=== PATIENT | male | born 1950 | race Caucasian/White ===

== ENCOUNTER → 2016-07-23 | Outpatient (CLI) | payer MEDICARE, OTHER | END | disposition home or self-care (01) | LOC: PCVCCLINIC 11:21 | PROVIDERS: ATTEND Internal Medicine Cardiovascular Disease | DX: I25.10 Atherosclerotic heart disease of native coronary artery without angina pectoris (principal); J44.9 Chronic obstructive pulmonary disease, unspecified; E78.00 Pure hypercholesterolemia, unspecified; I65.29 Occlusion and stenosis of unspecified carotid artery; I10 Essential (primary) hypertension; Z72.0 Tobacco use | CPT/HCPCS: 80061; 93005; G0463 ==

== ENCOUNTER → 2017-01-29 | Outpatient (CLI) | payer MEDICARE, OTHER ==
--- NOTE | 2017-01-29 10:44 | PCVCIMAG ---
EXAM: BILATERAL CAROTID DUPLEX INDICATION: Carotid Occlusive Disease. FINDINGS: Doppler Measurements (centimeters per second): RIGHT: Peak CCA-81, Peak ECA-172, Diastolic ICA-35, Peak ICA-114, ICA/CCA Ratio-1.4. LEFT: Peak CCA-130, Peak ECA-133, Diastolic ICA-33, Peak ICA-119, ICA/CCA Ratio-0.9. RIGHT CAROTID: Good color flow throughout a prior stent in the upper common carotid and extending into the proximal internal carotid artery. The proximal internal carotid artery shows no significant stenosis. The common carotid artery shows no significant stenosis. The external carotid artery shows 60% stenosis. LEFT CAROTID: The carotid bulb has moderate plaque. The proximal internal carotid artery shows <40% stenosis. The common carotid artery shows no significant stenosis. The external carotid artery shows 40% stenosis. Antegrade flow in both vertebral arteries. IMPRESSION: Prior right carotid stent showing good patency. <40% stenosis of the left internal carotid artery with moderate plaque. LOC:[id number]
--- NOTE | 2017-01-29 12:52 | PCVCIMAG ---
APPROVED REPORT Exam: Stress Echocardiogram Indication: CAD s/p PCI, Hypertension, Hyperlipidemia.+ tobacco, COPD Patient Location: Echo lab Stress Nurse: Joanne Dunne RN Room #: 2 Status: routine Ht: 5 ft 7 in HR: 70 bpm BP: 162/62 mmHg Rhythm: NSR Medical History Medical History: CAD s/p stent, COPD, HTN, Hyperlipidemia Cardiac Risk Factors: HTN, Hyperlipidemia, Smoking Previous Cardiac Procedures: PCI Pretest Chest Pain Characteristics: No chest pain Exercise History: Physically active Procedure The patient underwent an Exercise Stress Test using the Tushar Protocol. Blood pressure, heart rate, and EKG were monitored. An Echocardiogram was performed by lidar technician in four stages in quad fashion. At peak stress, four selected images were obtained and placed side by side with resting images for comparison. Stress Test Details Stress Test: Exercise stress testing was performed using a Tushar protocol. HR Resting HR: 70 bpmMax Heart Rate (APMHR): 152 bpm Max HR Achieved: 134 bpmTarget HR (85% APMHR): 129 bpm % of APMHR: 88 Recovery HR: 81 bpm HR response to stress: Normal HR response to stress BP Resting BP: 162/62 mmHg Max BP: 210/84 mmHg Recovery BP: 180/70 mmHg ECG Resting ECG: Sinus Rhythm Stress ECG: Sinus Rhythm ST Change: Upsloping ST depression Maximum ST Deviation: 1.1 mm Arrhythmia: rare PAC,PVC Recovery ECG: Sinus Rhythm Recovery ST Change: Non-ischemic Recovery ST Deviation: 1.1 mm Recovery Arrhythmia: None Clinical Reason for Termination: Maximal effort Stress Symptoms: none Exercise duration: 8 min 01 sec Highest Stage Achieved: Stage 3: 3.4 mph at 14% grade. Exercise capacity: 10.1 METs Overall Exercise Capacity for Age: Average Angina Score: None No complications. Stress ECG Conclusion The patient exercised according to the Tushar protocol for 8:01 mins; achieving a work level of 10.1 METS. The resting heart rate of 70 bpm jennifer to a maximal heart rate of 134 bpm. This value represents 88% of the maximal, age-predicted heart rate. The resting blood pressure of 162/62 mmHg, jennifer to a maximum of 210/84 mmHg. The exercise test was stopped due to fatigue. White Treadmill Score is 2.5 which is Moderate risk. Pre-Stress Echo The resting Echocardiogram showed normal left ventricular contractility with an estimated Ejection Fraction of about 55-60%. Normal wall motion in all segments on baseline images. Post-Stress Echo The stress Echocardiogram showed normal left ventricular contractility with an estimated Ejection Fraction of about 60-65%. Normal augmentation of wall motion in all segments on post stress images. Clinical No clinical or ECG evidence for ischemia. Conclusion Clinical Response: Non-ischemic Exercise Capacity: Average Stress ECG Response: Non-ischemic Stress Echo Images: Non-ischemic No clinical, EKG or echocardiographic evidence for ischemia. No echocardiographic evidence for exercise induced ischemia. Normal stress echocardiogram with maximal exercise stress. <Conclusion> No clinical, EKG or echocardiographic evidence for ischemia. No echocardiographic evidence for exercise induced ischemia. Normal stress echocardiogram with maximal exercise stress.
== END | disposition home or self-care (01) ==
LOC: PCVCIMAG 09:01
PROVIDERS: ATTEND Internal Medicine Cardiovascular Disease
DX: I65.23 Occlusion and stenosis of bilateral carotid arteries (principal); I25.10 Atherosclerotic heart disease of native coronary artery without angina pectoris; I10 Essential (primary) hypertension; J44.9 Chronic obstructive pulmonary disease, unspecified; I49.3 Ventricular premature depolarization; E78.00 Pure hypercholesterolemia, unspecified; Z72.0 Tobacco use; Z95.5 Presence of coronary angioplasty implant and graft; Z95.828 Presence of other vascular implants and grafts
CPT/HCPCS: 93325; 93351; 93880

== ENCOUNTER → 2017-09-03 | Outpatient (CLI) | payer MEDICARE, OTHER | END | disposition home or self-care (01) | LOC: PCVCCLINIC 10:50 | DX: I25.10 Atherosclerotic heart disease of native coronary artery without angina pectoris (principal); I10 Essential (primary) hypertension; E78.00 Pure hypercholesterolemia, unspecified; I77.9 Disorder of arteries and arterioles, unspecified; F17.210 Nicotine dependence, cigarettes, uncomplicated; R94.31 Abnormal electrocardiogram [ECG] [EKG]; Z79.899 Other long term (current) drug therapy; Z79.82 Long term (current) use of aspirin; Z88.0 Allergy status to penicillin | CPT/HCPCS: 80061; 93005; G0463 ==

== ENCOUNTER → 2018-05-01 | Outpatient (CLI) | payer MEDICARE, OTHER | END | disposition home or self-care (01) | LOC: PCVCCLINIC 13:58 | PROVIDERS: ATTEND Internal Medicine Cardiovascular Disease | DX: I25.10 Atherosclerotic heart disease of native coronary artery without angina pectoris (principal); I10 Essential (primary) hypertension; E78.00 Pure hypercholesterolemia, unspecified; I65.23 Occlusion and stenosis of bilateral carotid arteries; J44.9 Chronic obstructive pulmonary disease, unspecified; F17.210 Nicotine dependence, cigarettes, uncomplicated; Z79.82 Long term (current) use of aspirin; Z88.8 Allergy status to other drugs, medicaments and biological substances | CPT/HCPCS: 36415; 80061; 93005; G0463 ==

== ENCOUNTER → 2018-10-29 | Outpatient (CLI) | payer MEDICARE, OTHER ==
[~2018-10-29] MED LIST: REGADENOSON 0.4 MG/5 ML DISP.SYRIN. IV ONE
--- NOTE | 2018-10-29 09:57 | PCVCIMAG ---
APPROVED REPORT Laterality: Bilateral Indications Stenosis Doppler Spectral Velocity Analysis PSV / EDVPSV / EDV ECA (R) 121 / 13 cm/sECA (L) 70 / 6 cm/s dICA (R) 107 / 39 cm/sdICA (L) 63 / 27 cm/s Roman (R) 167 / 53 cm/smICA (L) 138 / 40 cm/s pICA (R) 76 / 27 cm/spICA (L) 129 / 45 cm/s Bulb (R) 72 / 16 cm/sBulb (L) 116 / 32 cm/s dCCA (R) 77 / 21 cm/sdCCA (L) 121 / 23 cm/s mCCA (R) 77 / 22 cm/smCCA (L) 144 / 37 cm/s Vert (R) 79 / 21 cm/sVert (L) 81 / 22 cm/s ICA/CCA 2.17 ICA/CCA 1.14 Findings The right carotid bulb has mild plaque. The right proximal internal carotid artery shows no significant stenosis. Mid right ICA stenosis distal to stent 60% Widely patent right common and ICA stent The right common carotid artery shows no significant stenosis. The left carotid bulb has moderate plaque. The left proximal internal carotid artery shows 40-50% stenosis. The left common carotid artery shows 40-50% stenosis. The left external carotid artery shows no significant stenosis. Conclusion 1. Right proximal internal carotid artery shows no significant stenosis. Mid right ICA stenosis distal to stent 60% Widely patent right common and ICA stent 2. Left proximal internal and common carotid artery 40-50% stenoses. 3. Antegrade vertebral flow
--- NOTE | 2018-10-29 11:34 | PCVCIMAG ---
APPROVED REPORT Imaging Protocol: Rest Tc-99m/Stress Tc-99m 1 day Study performed: 10/29/2018 09:46:16 Indication: CAD Patient Location: Out-Patient Stress Nurse: Laurie Keith RN, Joanne Dunne RN [place] Tech:Valerie Eliecer [facility] Ht: 5 ft 7 in Wt: 130 lbs BSA: 1.68 m2 HR: 68 bpm BP: 195/77 mmHg BMI: 20.35 Rhythm: Normal Sinus Rhythm with a septal infarct Medical History Medical History: Hyperlipidemia, HTN, CVD, COPD, Current Smoker Medications: Albuterol, ASA, Losartan, Pravastatin Allergies: Antihistamines Cardiac Risk Factors: Age Pretest Chest Pain Characteristics: No chest pain Exercise History: Physically active Resting Data Rest SPECT myocardial perfusion imaging was performed in supine position 45 minutes following the intravenous injection of 10.6 mCi of Tc-99m Sestamibi. Time of rest injection: 914 Date: 10/29/2018 Administration Route: IV Administration Site: Right AC Pharmacologic Stress Pharmacologic stress test was performed by injecting Regadenoson 0.4 mg IV push over 10-15 seconds immediately followed by the intravenous injection of 34.4 mCi of Tc-99m Sestamibi. Time of stress injection: 1014 Date: 10/29/2018 Administration Route: IV Administration Site: Right AC Gated Stress SPECT was performed 45 minutes after stress injection. The images were gated to evaluate regional wall motion and calculate left ventricular ejection fraction. Stress Test Details Stress Test: Pharmacologic stress testing performed using 0.4 mg of regadenoson per 5 mL given IV over 10 seconds. Reason for pharmacologic stress test: physical limitation - Lung disease. HRMax Heart Rate (APMHR): 150 bpm Resting HR: 68 bpmTarget HR (85% APMHR): 127 bpm Max HR Achieved: 87 bpm % of APMHR: 58 Recovery HR: 79 bpm BP Resting BP: 195/77 mmHg Max BP: 174/75 mmHg Recovery BP: 170/72 mmHg ECG Resting ECG: Normal Sinus Rhythm with a septal infarct Stress ECG: Normal Sinus Rhythm ST Change: Non-ischemic Arrhythmia: None Recovery ECG: Normal Sinus Rhythm Clinical Reason for Termination: Completed protocol Stress Symptoms: Abdominal discomfort Exercise duration: min 55 sec Symptoms resolved during recovery. Study Quality Study: Good Study Data Post stress, the left ventricular ejection was 66%.. SSS: 0 SRS: 1 SDS: 0 TID = 1.03. Perfusion Normal left ventricular perfusion. Normal perfusion on both the stress and rest images. Wall Motion Normal left ventricular wall motion. Nuclear Conclusion ECG Findings: negative for ischemia Clinical Findings: non-diagnostic Nuclear Findings: negative for ischemia Exercise Capacity: not assessed Left Ventricular Function: normal Risk Study: low This study is of low probability for inducible ischemia or prior infarct. Normal global and segmental LV systolic function.
--- NOTE | 2018-10-29 15:00 | PCVCIMAG ---
APPROVED REPORT Study performed: 10/29/2018 08:25:19 EXAM: Comprehensive 2D, Doppler, and color-flow Echocardiogram Patient Location: Echo lab Status: routine BSA: 1.68 HR: 69 bpmBP: 128/80 mmHg Rhythm: NSR Other Information Study Quality: Adequate Risk Factors: Cardiac Risk Factors: HTN, Hyperlipidemia, Smoking Indications COPD CAD 2D Dimensions IVSd: 7.92 (7-11mm)LVOT Diam: 20.00 (18-24mm) LVDd: 39.23 mm PWd: 8.89 (7-11mm)Ascending Ao: 29.04 (22-36mm) LVDs: 27.13 (25-40mm) Left Atrium: 35.59 (27-40mm) Aortic Root: 27.15 mm LV Single Plane 4CH: 58.98 % LV Single Plane 2CH: 59.68 % Biplane EF: 59.1 % Volumes Left Atrial Volume (Systole) Single Plane 4CH: 27.12 mLSingle Plane 2CH: 33.98 mL LA ESV Index: 18.00 mL/m2 Aortic Valve AoV Peak Leno.: 1.29 m/s AO Peak Gr.: 6.68 mmHgLVOT Max P.78 mmHg LVOT Max V: 0.97 m/s FRANCOISE Vmax: 2.36 cm2 Mitral Valve E/A Ratio: 0.8 MV Decel. Time: 207.81 ms MV E Max Leno.: 0.76 m/s MV A Leno.: 0.91 m/s TDI E/Lateral E': 9.50E/Medial E': 12.67 Medial E' Leno.: 0.06 m/s Lateral E' Leno.: 0.08 m/s Pulmonary Valve PV Peak Leno.: 1.01 m/sPV Peak Gr.: 4.12 mmHg UT End Vmax: 1.08 m/s Pulmonary Vein P Vein S: 0.63 m/sP Vein A: 0.30 m/s P Vein D: 0.42 m/sP Vein A Dur.: 86.5 msec P Vein S/D Ratio: 1.50 Tricuspid Valve TR Peak Leno.: 3.12 m/sRAP Estimate: 7.00 mmHg TR Peak Gr.: 39.00 mmHg PA Pressure: 46.00 mmHg Left Ventricle The left ventricle is normal size. There is normal LV segmental wall motion. There is normal left ventricular wall thickness. Left ventricular systolic function is normal. The left ventricular ejection fraction is within the normal range. LVEF is 60%. Mild diastolic dysfunction is present (impaired relaxation pattern). Right Ventricle The right ventricle is normal size. The right ventricular systolic function is normal. Atria The left atrium size is normal. The right atrium size is normal. Aortic Valve The aortic valve is normal in structure. No aortic regurgitation is present. There is no aortic valvular stenosis. Mitral Valve The mitral valve is normal in structure. Trace mitral regurgitation. No evidence of mitral valve stenosis. Tricuspid Valve The tricuspid valve is normal in structure. Mild tricuspid regurgitation. Pulmonary artery pressure is 46 mmHg. Pulmonic Valve The pulmonary valve is normal in structure. Moderate pulmonic regurgitation. Great Vessels The aortic root is normal in size. IVC is normal in size and collapses >50% with inspiration. Pericardium There is no pericardial effusion. <Conclusion> The left ventricle is normal size. Left ventricular systolic function is normal. The left ventricular ejection fraction is within the normal range. LVEF is 60%. Mild diastolic dysfunction is present (impaired relaxation pattern). The right ventricle is normal size. The left atrium size is normal. The aortic valve is normal in structure. Trace mitral regurgitation. Mild tricuspid regurgitation. Pulmonary artery pressure is 46 mmHg. Moderate pulmonic regurgitation. The aortic root is normal in size. There is no pericardial effusion.
== END ==
LOC: PCVCIMAG 07:46
PROVIDERS: ATTEND Internal Medicine Cardiovascular Disease
DX: I25.10 Atherosclerotic heart disease of native coronary artery without angina pectoris (principal); I65.23 Occlusion and stenosis of bilateral carotid arteries; E78.00 Pure hypercholesterolemia, unspecified; I10 Essential (primary) hypertension; F17.210 Nicotine dependence, cigarettes, uncomplicated; Z95.5 Presence of coronary angioplasty implant and graft
CPT/HCPCS: 78452; 93017; 93306; 93880; A9500; J2785